=== PATIENT | male | born 1950 | race Caucasian/White ===

== ENCOUNTER 2018-09-24 09:30 | Observation (INO) ==
[~2018-09-24 09:30] MED LIST: PANTOPRAZOLE 40 MG VIAL IV SCH
[2018-09-24 09:56] LABS: POC Blood Urea Nitrogen 13 mg/dl (8-23); POC CO2 23 mmol/L (22-30); POC Calcium, Ionized 1.18 mmol/L (1.16-1.32); POC Chloride 106 mmol/L (96-108); POC Glucose, Random 105 mg/dL (70-105); POC Potassium 4.1 mmol/L (3.3-5.1); POC Sodium 139 mmol/L (133-145)
[2018-09-24] MEDS ORDERED: 0.9 % SODIUM CHLORIDE 1,000 ML IV ONE (10:10)
--- NOTE | 2018-09-24 10:12 | Emergency Department Note ---
GI Bleed HPI - General Chief complaint: Rectal Bleed Stated complaint: blood in stool Time Seen by Provider: 09/24/18 09:51 Source: patient Mode of arrival: ambulatory Limitations: no limitations - History of Present Illness HPI Narrative: 67-year-old male with a history of painless bright red blood per rectum large amount in the toilet this morning with bowel movement. He was constipated for a day or so and so took Dulcolax last night. He does have some chronic lower abdominal pain. Last colonoscopy 5 years ago where they took out one polyp. 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 Denies shortness of breath rashes or other concerns - Related Data Previous Rx's Medication Instructions Recorded warfarin 5 mg tablet See Rx Instructions PO .COMPLEX 09/05/18 #30 tab clobetasol 0.05 % topical ointment 1 applic TOPICAL BID PRN #15 g 09/10/18 Allergies Allergy/AdvReac Type Severity Reaction Status Date / Time No Known Drug Allergies Allergy Verified 09/10/18 10:09 Review of Systems All systems ED: reviewed and negative except as stated. Past Medical History - Past Medical History Attestation: Yes: The following information was validated with the patient. [facility] Narrative: Family History (Last Reviewed 08/24/18 @ 09:23 by Jason Mcdaniel MD, FAA) Father Malignant neoplasm of colon Uncle Acute myocardial infarction Past Surgical History (Last Reviewed 08/24/18 @ 09:23 by Jason Mcdaniel MD, FAAFP) History of tonsillectomy (Resolved) History of surgical removal of skin lesion (Resolved) History of melanoma excision (Resolved) History of colonoscopy with polypectomy (Resolved 02/08/14) History of lithotripsy (Acute 07/02/15) Medical History (Last Reviewed 09/10/18 @ 12:06 by Hortencia Emanuel DO) Dyspnea (Chronic) Abdominal pain (Acute) Encounter for Health Maintenance Examination in Adult (Chronic) 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 Normocephalic atraumatic. Conjunctive are clear sclerae nonicteric. No nasal discharge or congestion. Oropharynx pink and moist. Neck is supple without lymphadenopathy thyromegaly or carotid bruit. Heart is regular rate and rhythm no murmur appreciated. Lungs are clear to auscultation bilaterally without wheezes rales rhonchi or respiratory distress. Abdomen is soft nontender nondistended. No peritoneal signs or guarding. No rigidity. Rectal exam shows no hemorrhoid or fissure. He is Hemoccult positive obviously. I cannot feel an internal hemorrhoid. No pedal edema. +2 radial pulse. He is alert oriented Patient showed me a picture of tolerable this morning with bright red blood mixed with clots in stool Limitations: no limitations Course Vital Signs Temperature 97 F 09/24/18 09:32 Pulse Rate 73 09/24/18 09:32 Respiratory Rate 18 09/24/18 09:32 Blood Pressure 192/93 09/24/18 09:32 Pulse Oximetry (%) 98 09/24/18 09:32 Temperature 97 F 09/24/18 09:32 Pulse Rate 83 09/24/18 12:50 Respiratory Rate 20 09/24/18 12:50 Blood Pressure 139/77 09/24/18 12:50 Pulse Oximetry (%) 100 09/24/18 12:50 Procedures - Other Procedure: Did anoscopy without sedation. Does look like he has some abrasion of the rectal canal but I do not see an internal hemorrhoid. Lillie dark blood. No fissures seen GI Bleed - Lab Data Lab results reviewed: Yes I reviewed the patient's lab results. Result diagrams: 09/24/18 09:51 09/24/18 09:51 Lab Results 09/24/18 09/24/18 09/24/18 Range/Units 09:51 09:51 09:51 WBC 6.6 (4.5-11.0) K/mcL RBC 5.04 (4.50-5.90) M/mcL Hgb 15.5 (13.5-16.5) g/dL Hct 46.6 (41.0-55.0) % POC Hct 47.0 (41.0-55.0) % MCV 92.4 (80.0-100.0) fL MCH 30.7 (26.0-34.0) pg MCHC 33.2 (31.0-36.0) g/dL RDW 13.1 (11.5-14.5) % Plt Count 189 (140-440) K/mcL MPV 10.8 H (7.4-10.4) fL Gran % 70.5 (38.0-78.0) % Lymph % (Auto) 22.1 (15.5-49.0) % Cecil % (Auto) 6.1 (1.0-12.0) % Eos % (Auto) 0.7 (0.0-7.0) % Baso % (Auto) 0.6 (0.0-2.0) % Gran # 4.6 (1.8-8.0) K/mcL Lymph # (Auto) 1.4 L (1.5-4.8) K/mcL Cecil # (Auto) 0.4 (0.1-0.9) K/mcL Eos # (Auto) 0 (0.0-0.7) K/mcL Baso # (Auto) 0 (0.0-0.3) K/mcL PT 21.5 H (11.9-14.5) sec INR 1.9 H (0.9-1.1) POC Sodium 139 (133-145) mmol/L Sodium 139 (133-145) mmol/L POC Potassium 4.1 (3.3-5.1) mmol/L Potassium 4.1 (3.3-5.1) mmol/L POC Chloride 106 (96-108) mmol/L Chloride 105 (96-108) mmol/L Carbon Dioxide 21 L (22-30) mmol/L POC Total CO2 23 (22-30) mmol/L Anion Gap 13.0 (8-16) POC BUN 13 (8-23) mg/dl BUN 13 (8-23) mg/dl Creatinine 1.0 (0.7-1.2) mg/dl POC Creatinine 1.0 (0.7-1.2) mg/dl GFR Calculation 78 Glucose 103 (70-105) mg/dL POC Glucose 105 (70-105) mg/dL Calcium 9.0 (8.6-10.4) mg/dl POC WB Ioniz Calcium 1.18 (1.16-1.32) mmol/L Total Bilirubin 0.6 (0.0-1.0) mg/dL AST 17 (0-37) U/l ALT 19 (0-40) U/l Alkaline Phosphatase 64 (39-117) U/L Total Protein 6.6 (5.9-8.4) gm/dL Albumin 4.0 (3.2-5.2) gm/dL Globulin 2.6 (2.2-3.7) gm/dL Albumin/Globulin Ratio 1.5 (1.0-2.3) Disposition Pt seen by TEACHER OF [employer]/PA only: No Clinical Impression: Lower gastrointestinal hemorrhage Summary: Painless bright red blood per rectum this morning. Ordered laboratory work-up. Concern for internal hemorrhoid versus lower GI pathology. Will discuss with GI pending lab results Endoscopic negative for internal hemorrhoids-I could not see one but I did see abrasion of the rectal canal. Labs are normal. He is given hydralazine for his elevated blood pressure. Discussed situation with Dr. Carrasco, GI neon sign servicer. He felt the patient did need a colonoscopy but this could be done as an outpatient. Because of his history of DVTs we will not stop the Coumadin rather we will treat his blood pressure and start GoLYTELY prep. He will follow-up on Wednesday for an urgent colonoscopy After talking with Dr. Carrasco and the patient making above-noted recommendations patient got dressed. He got ready to go and then went to the bathroom. This time in contrast to previous, he had a large amount of dark red almost black stool perhaps about 100 mL lillie blood without clots. Dr. Carrasco was called back. Fluids are started. Type and screen done D/w Dr. Ibanez, our hospitalist who agreed to accept the patient for further care and evaluation in the hospital. Dr. Carrasco will plan on doing colonoscopy tomorrow unless he worsens Disposition: Xfer As Inpt ([facility]) Condition: Fair Referrals: Jason Mcdaniel MD, FAAFP [Primary Care Provider] -
[2018-09-24 10:29] LABS: Basophils # (Auto) 0 K/mcL (0.0-0.3); Basophils % (Auto) 0.6 % (0.0-2.0); Eosinophils # (Auto) 0 K/mcL (0.0-0.7); Eosinophils % (Auto) 0.7 % (0.0-7.0); Granulocytes % (Auto) 70.5 % (38.0-78.0); Hematocrit 46.6 % (41.0-55.0); Hemoglobin 15.5 g/dL (13.5-16.5); Lymphocytes # (Auto) 1.4 K/mcL (1.5-4.8); Lymphocytes % (Auto) 22.1 % (15.5-49.0); Mean Cell Volume 92.4 fL (80.0-100.0); Mean Corpuscular HGB Conc 33.2 g/dL (31.0-36.0); Mean Platelet Volume 10.8 fL (7.4-10.4); Monocytes # (Auto) 0.4 K/mcL (0.1-0.9); Monocytes % (Auto) 6.1 % (1.0-12.0); Platelet Count 189 K/mcL (140-440); RBC 5.04 M/mcL (4.50-5.90); Red Cell Distribution Width 13.1 % (11.5-14.5); WBC 6.6 K/mcL (4.5-11.0)
[2018-09-24 10:47] LABS: ALT/SGPT 19 U/l (0-40); AST/SGOT 17 U/l (0-37); Albumin/Globulin Ratio 1.5 (1.0-2.3); Alkaline Phosphatase 64 U/L (39-117); Bilirubin,Total 0.6 mg/dL (0.0-1.0); Blood Urea Nitrogen 13 mg/dl (8-23); Carbon Dioxide 21 mmol/L (22-30); Chloride 105 mmol/L (96-108); Globulin 2.6 gm/dL (2.2-3.7); Glomerular Filtration Rate 78; Glucose 103 mg/dL (70-105); Potassium 4.1 mmol/L (3.3-5.1); Sodium 139 mmol/L (133-145)
[2018-09-24 11:04] LABS: INR 1.9 (0.9-1.1); Prothrombin Time 21.5 sec (11.9-14.5)
[2018-09-24] MEDS ORDERED: hydrALAZINE 20 MG/ML VIAL IV ONE (11:19)
[2018-09-24] MEDS ORDERED: PHYTONADIONE 10 MG/ML AMPUL SQ ONE (12:35)
[2018-09-24] MEDS ORDERED: 0.9 % SODIUM CHLORIDE 250 ML IV SCH (13:00)
--- NOTE | 2018-09-24 13:09 | Internal Med History&Physical ---
Medical - H&P: HPI Patient information: Note initiated : 09/24/18 at 1:07 pm Service Date, if different from initiated Date: [] Patient: Ishaan Mauro a 67 y/o M admitted on for blood in stool. Chief Complaint: [] History of present illness: Mr. Mauro is a 67 year old M Presents to the ED with bright red blood per rectum. Patient states that he has been constipated for the past 4 to 5 days with one small single hard bowel movement each day. He took a laxative last night this morning woke up and had a bloody stool and then had another 2 or 3 episodes of bloody diarrhea over the next few hours. Brought into the ED. He denies any abdominal rectal pain. No history of peptic ulcer disease. Is not on any NSAIDs area he is on warfarin for history of DVTs. No dizziness lightheadedness chest pain or shortness of breath. In the ED is evaluated vital signs stable labs are stable Case is discussed with Dr. Carrasco. The original plan is for outpatient scope however patient did have a large bloody bowel movement again at least 200 mL given the concern with ongoing bleeding patient was thus admitted. Dr. Carrasco plans for endoscopy in the morning Review of Systems: Pertinent positives as above. Denies headache/fever/chills/nausea/vomiting/chest or abdominal pain/cough/dyspnea. 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) Essential hypertension (Chronic) Calculus of kidney (Chronic) Melanoma of skin (Chronic) Deep vein thrombosis (Chronic) Diverticulosis of colon (Chronic) Edema (Chronic 10/11/13) Common migraine (Chronic 10/11/13) Varicose veins (Chronic 10/11/13) Hyperplastic colon polyp (Resolved 02/08/14) Past Surgical History (Last Reviewed 08/24/18 @ 09:23 by Jason Mcdaniel MD, FAAFP) History of tonsillectomy (Resolved) History of surgical removal of skin lesion (Resolved) History of melanoma excision (Resolved) History of colonoscopy with polypectomy (Resolved 02/08/14) History of lithotripsy (Acute 07/02/15) Family History (Last Reviewed 08/24/18 @ 09:23 by Jason Mcdaniel MD, FAAFP) Father Malignant neoplasm of colon Uncle Acute myocardial infarction Social History (Last Updated 09/10/18 @ 12:10 by Hortencia Emanuel DO) Patient denies tobacco Drinks several times a week Lives by himself Retired Medical - H&P: Meds Home Medications Medication Instructions Recorded Confirmed Type warfarin 5 mg tablet See Rx Instructions PO .COMPLEX 09/05/18 09/24/18 Rx #30 tab clobetasol 0.05 % topical ointment 1 applic TOPICAL BID PRN #15 g 09/10/18 09/24/18 Rx Allergies Allergy/AdvReac Type Severity Reaction Status Date / Time No Known Drug Allergies Allergy Verified 09/10/18 10:09 Medical - H&P: Exam - Constitutional Vitals: Temp Pulse Resp BP Pulse Ox 97 F 83 20 139/77 100 09/24/18 09:32 09/24/18 12:50 09/24/18 12:50 09/24/18 12:50 09/24/18 12:50 Exam: General: Alert, Awake, No acute Distress Eyes/N/T: EOMI, PEERL, Head/Neck: neck supple, normocephalic atraumatic CV: RRR, No murmurs, normal s1/s2 Pulm: Clear b/l, no wheezing/rhonchi/rales Abd: soft, nontender, +BS x4 Ext: no clubbing/cyanosis/edema Neuro: Alert, no focal deficits, moves all extremities, CN 2-12 grossly intact, symmetrical strength b/l upper/lower, sensations intact b/l upper/lower Skin: warm/dry Medical - H&P: Reslt - Labs CBC & Chem 7: 09/24/18 09:51 09/24/18 09:51 Labs: Short CBC 09/24/18 Range/Units 09:51 WBC 6.6 (4.5-11.0) K/mcL Hgb 15.5 (13.5-16.5) g/dL Hct 46.6 (41.0-55.0) % Plt Count 189 (140-440) K/mcL BMP 09/24/18 09:51 Sodium 139 Potassium 4.1 Chloride 105 Carbon Dioxide 21 L BUN 13 Creatinine 1.0 Glucose 103 Calcium 9.0 Liver Function 09/24/18 Range/Units 09:51 Total Bilirubin 0.6 (0.0-1.0) mg/dL AST 17 (0-37) U/l ALT 19 (0-40) U/l Alkaline Phosphatase 64 (39-117) U/L Albumin 4.0 (3.2-5.2) gm/dL Medical - H&P: A/P - Narrative A/P Narrative: A: *GI bleed, likely lower: *History of DVT: On lifelong warfarin *Hypertension: Was taken off his benazepril 10 mg about 6 months ago -Elevated at this time and has been elevated at home, patient may need to go back on blood pressure medication * P: -Serial H&H -Hold warfarin for now -Dr. Carrasco consulted and plan for endoscopy in the morning -prn IV BP, may need to start home BP med again -clear liquid, npo after midnight -ppx: SCD but will check venous doppler prior
[2018-09-24] MEDS ORDERED: hydrALAZINE 20 MG/ML VIAL IV PRN ×2 (13:18→14:16)
[2018-09-24] MEDS ORDERED: POLYETHYLENE GLYCOL 3350 17 GM PACKET PO ONE (14:16)
[2018-09-24] MEDS ORDERED: POTASSIUM CHLORIDE 20 MEQ TABLET PO PRN ×2 (14:16)
[2018-09-24] MEDS ORDERED: ACETAMINOPHEN 325 MG TABLET PO PRN (14:16)
[2018-09-24] MEDS ORDERED: POTASSIUM CHLORIDE 40 MEQ in DEXTROSE 5% IN WATER 500 ML IV PRN (14:16)
[2018-09-24] MEDS ORDERED: ONDANSETRON 4 MG/2 ML VIAL IV PRN (14:16)
[2018-09-24] MEDS ORDERED: MAGNESIUM SULFATE 2 GM/50 ML BAG IV PRN (14:16)
[2018-09-24] MEDS ORDERED: PROMETHAZINE 25 MG TABLET PO PRN (14:16)
[2018-09-24] MEDS: LISINOPRIL 5 MG TABLET PO SCH (14:48)
[2018-09-24] MEDS: 0.9 % SODIUM CHLORIDE 10 ML SYRINGE IV SCH ×2 (14:49→23:17)
[2018-09-24] MEDS: PANTOPRAZOLE 40 MG TABLET PO SCH (15:06)
--- NOTE | 2018-09-24 16:47 | Ultrasound Report ---
CLINICAL INFORMATION: History of deep venous thrombosis in the right popliteal vein. Leg pain and swelling TECHNIQUE: Grayscale and color flow Doppler spectral imaging COMPARISON: None. FINDINGS: Findings consistent with recanalized chronic clot in the right popliteal vein. No acute right deep venous thrombosis. Normal right common femoral vein and superficial femoral vein. Calf veins are negative. Greater and lesser saphenous veins are negative. Left lower extremity is negative. Normal left common femoral vein, superficial femoral vein, popliteal vein. Calf veins are negative. Greater and lesser saphenous veins are negative IMPRESSION: 1. Recanalized chronic clot in the right popliteal vein. This is not obstructive 2. No acute deep venous thrombosis Interpreted and Authenticated by: Kervin Ballesteros 09/24/18
[2018-09-24 17:21] LABS: Hematocrit 44.3 % (41.0-55.0); Hemoglobin 14.4 g/dL (13.5-16.5)
[2018-09-25] MEDS: 0.9 % SODIUM CHLORIDE 10 ML SYRINGE IV SCH ×2 (04:58→15:02)
[2018-09-25 05:53] LABS: Basophils # (Auto) 0 K/mcL (0.0-0.3); Basophils % (Auto) 0.5 % (0.0-2.0); Eosinophils # (Auto) 0.1 K/mcL (0.0-0.7); Eosinophils % (Auto) 0.9 % (0.0-7.0); Granulocytes % (Auto) 70.3 % (38.0-78.0); Hematocrit 41.2 % (41.0-55.0); Hemoglobin 13.6 g/dL (13.5-16.5); Lymphocytes # (Auto) 1.7 K/mcL (1.5-4.8); Lymphocytes % (Auto) 20.2 % (15.5-49.0); Mean Cell Volume 92.9 fL (80.0-100.0); Mean Corpuscular HGB Conc 33.2 g/dL (31.0-36.0); Mean Platelet Volume 11.2 fL (7.4-10.4); Monocytes # (Auto) 0.7 K/mcL (0.1-0.9); Monocytes % (Auto) 8.1 % (1.0-12.0); Platelet Count 177 K/mcL (140-440); RBC 4.43 M/mcL (4.50-5.90); Red Cell Distribution Width 13.2 % (11.5-14.5); WBC 8.5 K/mcL (4.5-11.0)
[2018-09-25 05:55] LABS: INR 1.8 (0.9-1.1); Prothrombin Time 21.1 sec (11.9-14.5)
[2018-09-25] MEDS ORDERED: PEG 3350/NA SULF,BICARB,CL/KCL 4,000 ML ORAL.SOL PO ONE (06:11)
[2018-09-25] MEDS ORDERED: PEG 3350/NA SULF,BICARB,CL/KCL 4,000 ML ORAL.SOL ONE (06:21)
[2018-09-25 06:48] LABS: ALT/SGPT 15 U/l (0-40); AST/SGOT 16 U/l (0-37); Albumin 3.7 gm/dL (3.2-5.2); Albumin/Globulin Ratio 1.8 (1.0-2.3); Alkaline Phosphatase 55 U/L (39-117); Bilirubin,Direct < 0.2 mg/dL (0.0-0.3); Bilirubin,Total 0.8 mg/dL (0.0-1.0); Blood Urea Nitrogen 10 mg/dl (8-23); Calcium 8.5 mg/dl (8.6-10.4); Carbon Dioxide 21 mmol/L (22-30); Chloride 105 mmol/L (96-108); Globulin 2.1 gm/dL (2.2-3.7); Glomerular Filtration Rate 88; Glucose 88 mg/dL (70-105); Lactate Dehydrogenase 170 U/L (94-250); Magnesium 1.9 mg/dL (1.6-2.5); Phosphorous 2.2 mg/dL (2.7-4.5); Sodium 139 mmol/L (133-145); Triglycerides 96 mg/dl (<150)
--- NOTE | 2018-09-25 07:43 | Internal Med Progress Note ---
Medical - PN: Subj Patient information: Note initiated : 09/25/18 at 7:40 am Service Date, if different from initiated Date: [] Patient: Ishaan Mauro a 67 y/o M admitted on 09/24/18 for blood in stool. Chief Complaint: [] Interval history: History of present illness: Mr. Mauro is a 67 year old M Presents to the ED with bright red blood per rectum. Patient states that he has been constipated for the past 4 to 5 days with one small single hard bowel movement each day. He took a laxative last night this morning woke up and had a bloody stool and then had another 2 or 3 episodes of bloody diarrhea over the next few hours. Brought into the ED. He denies any abdominal rectal pain. No history of peptic ulcer disease. Is not on any NSAIDs area he is on warfarin for history of DVTs. No dizziness lightheadedness chest pain or shortness of breath. In the ED is evaluated vital signs stable labs are stable Case is discussed with Dr. Carrasco. The original plan is for outpatient scope however patient did have a large bloody bowel movement again at least 200 mL given the concern with ongoing bleeding patient was thus admitted. Dr. Carrasco plans for endoscopy in the morning 09/25 Doing well well. No gross bleeding last night. Started have some this morning with the GoLYTELY prep. No new complaints. H&H stable. Colonoscopy at 3 today Review of Systems: denies headache/fever/chills/nausea/vomiting/chest or abdominal pain/cough/dyspnea. Otherwise see above. - Constitutional Vitals: Vital Signs Temp Pulse Resp BP Pulse Ox 97.8 F 85 16 159/88 94 09/25/18 06:52 09/25/18 07:03 09/25/18 06:52 09/25/18 06:52 09/25/18 07:03 Period Temp Pulse Resp BP Sys/Zamora Pulse Ox Last 24 Hr 97 F-99.6 F 73-85 12-20 117-192/72-100 94-100 Intake and Output 09/24/18 09/25/18 09/25/18 21:59 05:59 13:59 Intake Total 470 200 Output Total 1175 740 500 Balance -705 -540 -500 Weight 100.471 kg Intake & Output: Intake & Output 09/24/18 09/25/18 09/25/18 21:59 05:59 13:59 Intake Total 470 200 Output Total 1175 740 500 Balance -705 -540 -500 Weight 100.471 kg Intake: Oral 470 200 Output: Urine Catheter Amount 100 Void Amount 625 740 200 Stool 450 300 Other: Meal Dinner Urine Appearance Clear Urine Color Bright Yellow Straw Urine Odor Normal Stool Size Moderate Stool Color Bright Red Blood Bright Red Blood Stool Consistency Loose Liquid Exam: General: Alert, Awake, No acute Distress Eyes/N/T: EOMI, Head/Neck: neck supple, CV: RRR, No murmurs, Pulm: Clear b/l, no wheezing/rhonchi/rales Abd: soft, nontender, +BS x4 Ext: no clubbing/cyanosis/edema Neuro: Alert, no focal deficits, moves all extremities, Skin: warm/dry Medical - PN: Obj Da - Labs CBC & Chem 7: 09/25/18 03:30 09/25/18 03:30 Labs: Abnormal Lab Results 09/25/18 09/25/18 09/25/18 03:30 03:30 03:30 RBC 4.43 L MPV 11.2 H Lymph # (Auto) PT 21.1 H INR 1.8 H Carbon Dioxide 21 L Calcium 8.5 L Phosphorus 2.2 L Total Protein 5.8 L Globulin 2.1 L 09/24/18 09/24/18 09/24/18 09:51 09:51 09:51 RBC MPV 10.8 H Lymph # (Auto) 1.4 L PT 21.5 H INR 1.9 H Carbon Dioxide 21 L Calcium Phosphorus Total Protein Globulin Meds: Medications Acetaminophen (Tylenol) 650 mg PO Q6HP PRN PRN Reason: PAIN/FEVER > 101 Last Admin: 09/25/18 04:56 Dose: 650 mg Documented by: Hydralazine HCl (Apresoline) 10 - 20 mg IV Q2HP PRN PRN Reason: Hypertension Potassium Chloride 40 meq/ (Dextrose) 520 mls @ 130 mls/hr IV UD PRN PRN Reason: Potassium < 3 Magnesium Sulfate (Magnesium Sulfate) 2 gm in 50 mls @ 50 mls/hr IV UD PRN PRN Reason: Magnesium </= 1.6 Lisinopril (Zestril) 5 mg PO DAILY JUJU Last Admin: 09/24/18 14:48 Dose: 5 mg Documented by: Ondansetron HCl (Zofran) 4 mg IV Q4HP PRN PRN Reason: Nausea And Vomiting Last Admin: 09/25/18 04:56 Dose: 4 mg Documented by: Pantoprazole Sodium (Protonix) 40 mg PO QAMAC [facility] Last Admin: 09/24/18 15:06 Dose: 40 mg Documented by: Potassium Chloride (Kdur) 40 meq PO UD PRN PRN Reason: Potssium is 3-3.5 Potassium Chloride (Kdur) 40 meq PO UD PRN PRN Reason: Potassium < 3 Promethazine HCl (Phenergan) 0 mg PO Q6HP PRN PRN Reason: Nausea And Vomiting Sodium Chloride (Saline Flush) 10 ml IV Q8 [facility] Last Admin: 09/25/18 04:58 Dose: 10 ml Documented by: Medical - PN: A/P - Time Spent With Patient Total time spent is greater than 50% in coordination of care (as documented) at patient's floor/unit and/or counseling patient: - Narrative A/P Narrative: A: *GI bleed, likely lower: *History of DVT: On lifelong warfarin *Hypertension: Was taken off his benazepril 10 mg about 6 months ago -Elevated on admit and has been elevated at home, patient may need to go back on blood pressure medication -Improved today P: -Serial H&H -Hold warfarin for now -Dr. Mccracken following, endoscopy today -lisinopril started - -ppx: SCD (no DVT on u/s) Medical - PN: Qual - Stroke Symptom Onset Unknown: No - VTE Deep Vein Thrombosis/Pulmonary Embolism Present on Admission: No
[2018-09-25] MEDS: PANTOPRAZOLE 40 MG TABLET PO SCH (08:06)
[2018-09-25] MEDS: LISINOPRIL 5 MG TABLET PO SCH (09:16)
[2018-09-25] MEDS ORDERED: PROPOFOL 200 MG/20 ML VIAL IV SCH (14:45)
[2018-09-25] MEDS ORDERED: MIDAZOLAM 2 MG/2 ML VIAL IV SCH (14:45)
--- NOTE | 2018-09-25 16:18 | Discharge Summary ---
Medical - DS: Prov Patient information: Note initiated : 09/25/18 at 4:16 pm Service Date, if different from initiated Date: [] Patient: Ishaan Mauro 67 y/o M admitted on 09/24/18 for blood in stool. Chief Complaint: [] Date of admission: 09/24/18 13:54 Discharge date: 09/25/18 Primary care physician: Jason Mcdaniel M.D., F.A.A.F.P. Consults: 09/24/18 Consult to Physician [CONS] Stat Comment: Consulting Provider: Jose Mccracken Reason For Exam: Physician to Consult Consult to Physician [CONS] Stat Comment: Consulting Provider: Natan Ibanez Reason For Exam: Physician to Consult Discharging clinician: Johanna Cruz Medical - DS: Meds - Discharge Medications Active and Home Medications: Home Medications warfarin 5 mg tablet See Rx Instructions PO .COMPLEX #30 tab 09/05/18 [Rx Confirmed 09/24/18 Last Taken Unknown] clobetasol 0.05 % topical ointment 1 applic TOPICAL BID PRN #15 g 09/10/18 [Rx Confirmed 09/24/18 Last Taken Unknown] Medical - DS: Hosp Hospital course: Mr. Mauro is a 67 year old M Presents to the ED with bright red blood per rectum. Patient states that he has been constipated for the past 4 to 5 days with one small single hard bowel movement each day. He took a laxative last night this morning woke up and had a bloody stool and then had another 2 or 3 episodes of bloody diarrhea over the next few hours. Brought into the ED. He denies any abdominal rectal pain. No history of peptic ulcer disease. Is not on any NSAIDs area he is on warfarin for history of DVTs. No dizziness lightheadedness chest pain or shortness of breath. In the ED is evaluated vital signs stable labs are stable Case is discussed with Dr. Carrasco. The original plan is for outpatient scope however patient did have a large bloody bowel movement again at least 200 mL given the concern with ongoing bleeding patient was thus admitted. Dr. Carrasco plans for endoscopy in the morning 09/25 Doing well well. No gross bleeding last night. Started have some this morning with the GoLYTELY prep. No new complaints. H&H stable. Patient underwent colonoscopy, found a few diverticuli as well as a couple of polyps which were removed by Dr. Carrasco. No blood was noted in the colon. patient was cleared for discharge by Dr. Carrasco. Okay to continue with Jose M caldwell. Patient is eager to be discharged this evening will be discharged home with outpatient follow-up with PCP, no changes in his chronic home medication list is done. Discharge diagnosis: Lower GI bleed - Time Spent with Patient Total time spent providing and/or coordinating discharge services: Greater than 30 minutes Medical - DS: Exam - Constitutional Vitals: Vital Signs Temp Pulse Pulse Resp BP BP Pulse Ox 09/25/18 16:05 62 16 113/87 96 09/25/18 15:53 65 15 103/60 95 09/25/18 15:49 66 16 95/56 95 09/25/18 15:41 68 66 13 91/57 94/57 98 09/25/18 14:57 77 16 154/95 96 09/25/18 14:50 79 16 163/101 97 09/25/18 12:00 97.4 F 16 147/88 97 09/25/18 09:17 92 H 16 154/95 96 09/25/18 07:03 85 94 09/25/18 06:52 97.8 F 16 159/88 94 09/25/18 04:00 98.8 F 75 16 117/72 94 09/24/18 23:25 99.5 F H 79 18 134/79 96 09/24/18 20:00 98.8 F 75 12 139/86 96 09/24/18 16:30 99.6 F H 18 154/74 98 Intake and Output 09/25/18 09/25/18 09/25/18 05:59 13:59 21:59 Intake Total 200 0 Output Total 740 2325 Balance -540 -2325 0 Intake: Oral 200 0 Output: Void Amount 740 675 Stool 1650 Other: Urine Color Straw Stool Size Large Stool Color Brown Stool Consistency Watery # Voids 1 # Bowel Movements 400 Additional comments: Constitutional; Afebrile, cooperative, alert, not in distress. 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 Medical - DS: Data Labs on day of discharge: Labs from last 24 hours 09/25/18 09/25/18 09/25/18 03:30 03:30 03:30 WBC 8.5 RBC 4.43 L Hgb 13.6 Hct 41.2 MCV 92.9 MCH 30.8 MCHC 33.2 RDW 13.2 Plt Count 177 MPV 11.2 H Gran % 70.3 Lymph % (Auto) 20.2 Canadian % (Auto) 8.1 Eos % (Auto) 0.9 Baso % (Auto) 0.5 Gran # 6.0 Lymph # (Auto) 1.7 Canadian # (Auto) 0.7 Eos # (Auto) 0.1 Baso # (Auto) 0 PT 21.1 H INR 1.8 H Sodium 139 Potassium 4.0 Chloride 105 Carbon Dioxide 21 L Anion Gap 13.0 BUN 10 Creatinine 0.9 GFR Calculation 88 Glucose 88 Uric Acid 4.0 Calcium 8.5 L Phosphorus 2.2 L Magnesium 1.9 Total Bilirubin 0.8 Direct Bilirubin < 0.2 GGT 16 AST 16 ALT 15 Alkaline Phosphatase 55 Lactate Dehydrogenase 170 Total Protein 5.8 L Albumin 3.7 Globulin 2.1 L Albumin/Globulin Ratio 1.8 Triglycerides 96 09/24/18 16:15 WBC RBC Hgb 14.4 Hct 44.3 MCV MCH MCHC RDW Plt Count MPV Gran % Lymph % (Auto) Canadian % (Auto) Eos % (Auto) Baso % (Auto) Gran # Lymph # (Auto) Canadian # (Auto) Eos # (Auto) Baso # (Auto) PT INR Sodium Potassium Chloride Carbon Dioxide Anion Gap BUN Creatinine GFR Calculation Glucose Uric Acid Calcium Phosphorus Magnesium Total Bilirubin Direct Bilirubin GGT AST ALT Alkaline Phosphatase Lactate Dehydrogenase Total Protein Albumin Globulin Albumin/Globulin Ratio Triglycerides Medical - DS: A/P - Patient/Caregiver Discharge Instructions Activity: increase activity as tolerated Diet: Regular Diet Additional Instructions: Check INR in 2 to 3 days. continue Coumadin as per home dose Follow-up with PCP in 1 week to 2 weeks Go to the emergency room if you notice fresh blood in stools. - Follow up Plan Follow up with: Jason Mcdaniel MD, FAAFP [Primary Care Provider] - Disposition: Home, Self-Care Prognosis: Fair Rehab Potential: Fair I certify that the patient requires SNF services: No Overall status at discharge: patient is progressing back to baseline Medical - DS: Qual - VTE Deep Vein Thrombosis/Pulmonary Embolism Present on Admission: No
--- NOTE | 2018-09-26 07:40 | Operative Note ---
DATE OF OPERATION: 09/25/2018 PREPROCEDURE DIAGNOSIS: Lower GI bleed, diverticular bleed versus large quantity of blood from internal hemorrhoids. POSTPROCEDURE DIAGNOSES: Two colon polyps, diverticulosis, hemorrhoids, and lower gastrointestinal bleed, probably secondary to diverticula. PROCEDURE: Colonoscopy with polypectomy. INSTRUMENT USED: Olymp[employer] [id number] endoscope. SPECIMENS OBTAINED: Two polyps from descending colon, piecemeal for the larger one and single excision polypectomy for the smaller polyp. INDICATIONS FOR PROCEDURE: The patient is a 67-year-old gentleman whose primary care physician is Dr. Jason Mcdaniel. The patient did present to the emergency department and had a small amount of blood per rectum. I believe he had some elevated blood pressure. This was being treated. The patient was about ready to be discharged from the emergency department when he passed a larger quantity of blood. Because of the larger amount of blood per rectum it was felt best to observe him in the hospital, at least for a while. The bleeding seemed to slow overnight. Colonoscopy was planned after a bowel prep. If he continued bleeding, we would probably do an unprepped colonoscopy. Per report, he did have a colonoscopy about 5 years ago and I believe did have a polyp removed. I do not have the exact record in front of me. Full colonoscopy is indicated because of his bleeding and he is about due for colonoscopy anyway. INFORMED CONSENT: Time of informed consent 15:05. The procedure was reviewed with the patient. The patient had no further questions and accepts the risks and benefits thereof. One of the risks that were discussed included . Additional risks that were also discussed included bleeding, reaction to medication, possible perforation and possible need for surgery. IV MEDICATIONS USED: Versed 2 mg and propofol 220. FINDINGS: RECTUM: Hemorrhoids were noted. No bleeding was noted. The tissue was not very irritated at all. SIGMOID COLON/DESCENDING COLON: A few diverticula were noted. In the descending colon about 40 cm, there were 2 polyps-an 8 mm adenomatous-appearing polyp removed with the snare. There was a tiny residual piece that was removed with snare again and then a biopsy forceps to be certain the polyp was totally removed. Nearby, there was a 4 mm polyp removed with a single snare, removed first time in total. SPLENIC FLEXURE/TRANSVERSE COLON/HEPATIC FLEXURE: Normal. ASCENDING COLON: Normal. CECUM: The cecum was identified by the ileocecal valve and the appendiceal dimple. Cecum appeared normal. TERMINAL ILEUM: This was inspected for a few centimeters and was found to be normal. RECOMMENDATIONS: I have no objections to a diet. I believe we can go to a full liquid diet or soft diet. I have no objections if he leaves the hospital later on today or if it seems best to observe him longer and let him go tomorrow. He should call in a week for the pathology report. I anticipate we will recommend a repeat colonoscopy in about 5 years. He should have reasonable water and fiber in the diet. A high fiber, low fat, vegetarian diet may help reduce the risk of colon polyps or colon cancer. Regarding his diverticulosis, he may have nuts, seeds, and popcorn in the diet as tolerated. There is no need to prohibit nuts, seeds, and popcorn just because one has diverticulosis. SEDATION TIME: 15:11 to 15:50. Please refer to the preprocedure nurse's notes, procedure flowsheet, procedure record, and post-procedure assessment for details of the sedation including the pre-, intra-, and post-service work. CRD:kh Job ID: [id number] Doc ID: [id number] Jose Estrada MD
--- NOTE | 2018-09-27 13:33 | Surgical Pathology Report ---
HISTOLOGY SPECIMEN MICROSCOPIC DIAGNOSIS COLON, DESCENDING POLYPS, POLYPECTOMY: -- PORTIONS OF TUBULAR ADENOMA. (FRANCIS:jocelyn) CLINICAL HISTORY Lower GI bleeding; previous polyps; father with colon cancer. PROCEDURAL IMPRESSION Polyps; diverticulosis; hemorrhoids. GROSS DESCRIPTION Received in formalin labeled descending colon polyp, are six fragments of pink-diaz tissue ranging in size from 0.1 up to 0.6 cm. Totally submitted - one cassette. (KGW:jocelyn) Electronically Signed by: Rafy Knight M.D.
== END 2018-09-25 16:51 | disposition home or self-care (01) ==
LOC: ED 09:30 → ICU 09:30
PROVIDERS: ADMIT Internal Medicine; ATTEND Internal Medicine